=== PATIENT | female | born 1980 | race Caucasian/White ===

== ENCOUNTER → 2024-11-04 | Outpatient (CLI) | payer OTHER, SELFPAY ==
[2024-11-04 14:23] LABS: EXAGEN MAILED SPECIMEN
== END | disposition home or self-care (01) ==
LOC: LAB 13:20
PROVIDERS: Referring Provider Internal Medicine Rheumatology; Visit Provider Internal Medicine Rheumatology
DX: D89.89 Other specified disorders involving the immune mechanism, not elsewhere classified (principal); R76.8 Other specified abnormal immunological findings in serum
CPT/HCPCS: 36415